=== PATIENT | male | born 1990 | race American Indian/Alaskan Native ===

== ENCOUNTER 2019-03-02 18:43 | Emergency (ER) | payer OTHER ==
[2019-03-02 19:02] VITALS: BP 147/86
[2019-03-02] MEDS ORDERED: IBUPROFEN PO ONE (19:02)
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
--- NOTE | 2019-03-02 20:23 | XRay Report ---
PROCEDURE: XR SPINE LUMBOSACRAL 2-3V TECHNIQUE: 3 views of the lumbar spine obtained. HISTORY: LUMBAR BACK PAIN COMPARISONS: None FINDINGS: No acute fracture or subluxation. Vertebral body heights are maintained. IMPRESSION: No acute fracture or subluxation.. This document is electronically signed by Heydi Noel MD., March 02 2019 08:21:06 PM ET
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
== END 2019-03-02 22:21 | disposition home or self-care (01) ==
LOC: ED 18:43
DX: M54.5 Low back pain (principal); R51 Headache; J45.909 Unspecified asthma, uncomplicated; F17.200 Nicotine dependence, unspecified, uncomplicated; Z87.442 Personal history of urinary calculi; V49.49XA Driver injured in collision with other motor vehicles in traffic accident, initial encounter; Y93.89 Activity, other specified; Y92.410 Unspecified street and highway as the place of occurrence of the external cause; Y99.8 Other external cause status
CPT/HCPCS: 72100